=== PATIENT | male | born 1950 | race Caucasian/White ===

== ENCOUNTER 2018-01-15 09:46 | Day surgery (SDC) | payer MEDICARE ==
[~2018-01-15] VITALS: Ht 177.8 cm; Wt 98.4 kg
--- NOTE | ~2018-01-15 | OP ---
PATIENT NAME: SHANTHI BERNARDO MEDICAL RECORD: [id number] :52 LOCATION:D.OPS ADMISSION DATE: SURGEON: AMBROSIO SABA MD DATE OF OPERATION: 01/15/2018 PREOPERATIVE DIAGNOSIS: Distal ascending colon polyp. POSTOPERATIVE DIAGNOSES: 1. Hepatic flexure polyp, large, 4 cm, villous with stigmata that are worrisome for an underlying malignancy. 2. Sessile secondary polyp, which is a 9-mm polyp. PROCEDURES: 1. Total colonoscopy to cecum. 2. Submucosal epinephrine injection at the side of the hepatic flexure polyp. 3. Multiple cold endoscopic biopsies of the hepatic flexure polyp. 4. Treatment of the polypoid base with the argon plasma refractive surgeon utilizing the right colon setting in the forced mode. 5. Placement of 6 endoscopic clips in a row to reinforce the area where the polypectomy had been performed. 6. Hot biopsy forceps polypectomy times 1. SURGEON: Ambrosio Saba MD HOUSEKEEPING STAFF: None. BLOOD LOSS: Minimal. ANESTHESIA: General. COMPLICATIONS: None. The risks, possible complications, and alternatives to the procedure were explained to the patient. She elects to proceed. The discussion specifically included, but was not limited to, bleeding, requiring emergency reoperation; infection; possible need for additional operative procedure; and endoscopic perforation. OPERATIVE COURSE: The patient was conveyed to the operating room yesterday, which was 01/15/2018. General anesthesia was induced by the anesthesia staff. The patient was placed in the [place] position. A digital rectal examination was performed. A colonoscope was inserted through the anus. It was easily advanced to the cecum. I slowly withdrew the endoscope. Combination of normal imaging and narrow band imaging was utilized. The prep was excellent. The pullback was greater than a 25-minute pullback. At the hepatic flexure, I noted a large carpeting polyp. I advanced a sclerotherapy needle. A submucosal injection of epinephrine was performed. I got a good lift of the polyp distally; however, on the front side of the polyp, which was the proximal side, I did not get a good lift with this pillow of submucosal epinephrine. I then went about performing multiple biopsies. Most of the distal half of this large 4-cm carpeting polyp I was able to remove just by using the cold endoscopic biopsy forceps. However, when I tried to biopsy the polyp on the proximal side of the fold, it was very firm and it was somewhat ulcerated. I am very concerned that this does represent a malignancy. I felt that further attempts to remove the polyp would result in an endoscopic perforation. During some of the biopsies on OPERATIVE REPORT [id number] SHANTHI BERNARDO KURT the fold, I had to go fairly deep. 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 For this reason and for reasons of hemostasis as the patient has not been off her anticoagulant for very long, I chose to place endoscopic clips. A row of 6 endoscopic clips were laid down. I was very satisfied with the way these laid down. The polypoid base distally was ablated with the argon plasma refractive surgeon utilizing the right colon setting in the forced mode. I then continued to withdraw the endoscope. A secondary polyp was noted and this was removed in its entirety utilizing the hot biopsy forceps polypectomy technique. A retroflexed view was obtained in the rectum. I then unretroflexed the scope and removed it under direct vision. Due to the fact that this is an endoscopically unresectable polyp and I am concerned about an underlying invasive malignancy, the patient will require a segmental colectomy. I will see her in the office in few weeks to discuss the results of the biopsies, but regardless of the results, this is an endoscopically unresectable polyp and therefore will need to be removed through an operative procedure. TRANSINT:[id number] Voice Confirmation ID: [id number] DOCUMENT ID: [id number] AMBROSIO SABA MD at 1718 CC: [id number] DICTATION DATE: 01/16/18 180 [facility] CAR UNLOADER: 01/16/18 183 [facility] 01/15/18 [place] [id number]
[~2018-01-15 09:46] MED LIST: LEXAPRO10 MG PO; PROSCAR5 MG PO
[2018-01-15 10:02] LABS: HEMATOCRIT 43.2 % (42.0-54.0); MCH 31.6 pg (26.0-34.0); MCHC 34.7 g/dL (31.0-37.0); MCV 90.9 fL (80.0-100.0); MEAN PLATELET VOLUME 10.1 fL (7.4-10.4); RBC 4.75 10x6/uL (4.20-6.10); RDW 12.7 % (11.5-14.5); WBC 5.9 10x3/uL (4.8-10.8)
[2018-01-15 10:14] VITALS: BP 141/70; Ht 177.8 cm; Wt 98.4 kg
== END 2018-01-15 16:30 | disposition home or self-care (01) ==
LOC: D.OPS 09:46 → D.PAN 12:00 → D.OPS 16:30
PROVIDERS: Anesthesiology
DX: D12.3 Benign neoplasm of transverse colon (principal); D12.8 Benign neoplasm of rectum; Z01.812 Encounter for preprocedural laboratory examination